=== PATIENT | female | born 1980 | race Caucasian/White ===

== ENCOUNTER → 2016-11-05 | Outpatient (CLI) | payer BC ==
[~2016-11-05] MED LIST: Gadobenate Dimeglumine 529 MG/ML 20 ML SDV IV ONE
--- NOTE | 2016-11-06 09:46 | MR ---
EXAMINATION: MRI of the brain with and without contrast. TECHNIQUE: Multiplanar multisequence imaging of the brain without and following 13 cc of Multihance contrast. HISTORY: Left facial paresthesia. FINDINGS: Cerebral hemispheres and the deep nuclei are without hemorrhage, mass, edema, gliosis, enhancement o r atrophy. There is no abnormal diffusion restriction. No extraaxial collections or hemorrhage. Ventricular system is of normal size and configuration without hydrocephalus. The brainstem and cer ebellum are without hemorrhage, mass, edema, gliosis, enhancement or atrophy. The carotid and basil ar artery flow voids are intact. The otomastoid airspaces are clear. No internal auditory canal or cerebellopontine angle masses or enhancement. There is close approximation of the right superior cerebellar artery and the right trig eminal nerve root The paranasal sinuses are clear. Globes, optic nerves, orbital apices, optic chi asm, optic tracts, and visual cortices are unremarkable. The pituitary and sella turcica are unrem arkable. No meningeal enhancement. The craniocervical junction is unremarkable. No siderosis. The calvari um is intact. IMPRESSION: 1. No acute intracranial abnormalities. 2. Close approximation of the right trigeminal nerve root and right superior cerebellar artery. 3. No cerebellar pontine angle mass or enhancement.
== END ==
LOC: MW.MRI 11:52
PROVIDERS: ATTEND Family Medicine
DX: G51.8 Other disorders of facial nerve (principal)
CPT/HCPCS: 70553; A9577